=== PATIENT | female | born 1940 | race Caucasian/White ===

== ENCOUNTER 2018-06-26 19:53 | Emergency (ER) | payer MEDICARE, BC ==
[2018-06-26 20:35] VITALS: BP 166/67
--- NOTE | 2018-06-26 20:44 | CR ---
[id number] RAD/RAD Shoulder Left 2V Min EXAM: LEFT SHOULDER 3 VIEWS INDICATION: Anterior shoulder pain and fall. COMPARISON: None. DISCUSSION: Acute nondisplaced greater tuberosity fracture is suggested. No dislocation. Mild to moderate acromioclavicular osteoarthritis. IMPRESSION: 1. Acute nondisplaced greater tuberosity fracture. Luis Crocker MD 06/26/18 2040 Thank you for allowing us to participate in the care of your patient.
--- NOTE | 2018-06-26 22:22 | EDM.PDOC ---
ED HPI GENERAL MEDICAL PROBLEM - General Chief Complaint: Upper Extremity Injury/Pain Stated Complaint: FAll, left shoulder pain Time Seen by Provider: 06/26/18 19:55 Source of Information: Reports: Patient History Limitations: Reports: No Limitations - History of Present Illness INITIAL COMMENTS - FREE TEXT/NARRATIVE: Pt. presents to ER with complaints of L shoulder pain. Pt. states that she had a mechanical fall and thinks she struck her shoulder on the edge of a car. She did not strike her head. Denies any neck pain. She states that her pain is isolated to the L shoulder. Denies numbness or tingling in the extremity. She states that the pain has improved since the initial injury. States that the pain is located only on the anteriolateral proximal humerus and denies any posterior shoulder pain, and no significant increase in pain with movement of the L shoulder. Onset: Today Onset Date: 06/26/18 Location: Reports: Upper Extremity, Left Left shoulder Pain Score (Numeric/FACES): 7 - Related Data Allergies Allergy/AdvReac Type Severity Reaction Status Date / Time ciprofloxacin HCl Allergy Dizziness Verified 06/26/18 20:35 [From Cipro] Sulfa (Sulfonamide Allergy Rash Verified 06/26/18 20:35 Antibiotics) Home Meds: Home Meds Losartan [Cozaar] 25 mg PO DAILY 06/28/14 [History] Multivitamin [Multi-Vitamin Daily] 1 each PO DAILY 06/28/14 [History] Nitrofurantoin Childress/Macrocryst [Macrobid] 100 mg PO BID 06/28/14 [History] Potassium Chloride 10 meq PO BID 06/28/14 [History] Propranolol HCl [Propranolol] 60 mg PO DAILY 06/28/14 [History] Triamterene/Hydrochlorothiazid [Triamterene-HCTZ 37.5-25 MG] 1 each PO DAILY [History] Past Medical History Cardiovascular History: Reports: Hypertension Review of Systems - Review of Systems Review Of Systems: ROS reveals no pertinent complaints other than HPI. ED EXAM, GENERAL - Physical Exam Exam: See Below Exam Limited By: No Limitations General Appearance: Alert, WD/WN, No Apparent Distress Head: Atraumatic, Normocephalic Neck: Normal Inspection, Supple, Non-Tender, Full Range of Motion Extremities: Normal Inspection, Normal Range of Motion, Other (anteriolateral L shoulder pain on palpation. No crepitus noted. No ecchymosis. No obvious deformity.) Course - Vital Signs Last Recorded V/S: Last Vital Signs Temp 36.7 C 06/26/18 19:55 Pulse 68 06/26/18 19:55 Resp 16 06/26/18 19:55 BP 166/67 H 06/26/18 19:55 Pulse Ox 95 06/26/18 19:55 - Radiology Interpretation Free Text/Narrative:: Radiologist questioned possible greater tuberosity fracture of the shoulder. Departure - Departure Time of Disposition: 10:24 Disposition: Home, Self-Care 01 Clinical Impression: Humerus fracture - Discharge Information Referrals: Sanchez Ahuja MD [Primary Care Provider] - Forms: ED Department Discharge Additional Instructions: Follow-up in clinic in 7-10 days Ice shoulder for 15 min every 1-2 hours Use sling for comfort Tylenol as needed for pain. - Assessment/Plan Plan: I spoke with the orthopedist manager production at [facility]. He states that he is not sure if there is a definite fracture. He advised outpatient followup if the patient is continuing to have pain. She was placed in a sling. Tylenol as needed for pain. She is not interested in any other medication at this time. Follow-up in clinic in 7-10 days. Ice shoulder for 10-15 min every 1-2 hours.
== END 2018-06-26 22:00 | disposition home or self-care (01) ==
LOC: VM.ED 19:53
DX: S42.302A Unspecified fracture of shaft of humerus, left arm, initial encounter for closed fracture (principal); I10 Essential (primary) hypertension; Z88.1 Allergy status to other antibiotic agents; Z88.2 Allergy status to sulfonamides; Z79.899 Other long term (current) drug therapy; W22.8XXA Striking against or struck by other objects, initial encounter
CPT/HCPCS: 73030-LT; 99283-25; 99283-GF

== ENCOUNTER 2023-01-09 13:01 | Emergency (ER) | payer MEDICARE, BC ==
[~2023-01-09 13:01] MED LIST: Ondansetron 4 MG/2 ML SDV IVPUSH ONE; Ondansetron 4 MG/2 ML SDV ONE
[2023-01-09 17:24] VITALS: BP 150/65; PULSE 66
== END 2023-01-09 14:53 | disposition home or self-care (01) ==
LOC: SUPCPDRO 13:01 → VM.ED 13:01
DX: R04.0 Epistaxis (principal); M54.50 Low back pain, unspecified; I10 Essential (primary) hypertension; I48.91 Unspecified atrial fibrillation; Z79.899 Other long term (current) drug therapy; Z88.1 Allergy status to other antibiotic agents; Z88.2 Allergy status to sulfonamides; Z79.01 Long term (current) use of anticoagulants
CPT/HCPCS: 30901; 30903; 96374; 99283; 99284-25; J2405

== ENCOUNTER 2023-04-06 18:15 | Emergency (ER) | payer MEDICARE, BC ==
[2023-04-06 19:04] VITALS: BP 147/97; PULSE 89
== END 2023-04-06 19:20 | disposition home or self-care (01) ==
LOC: VM.ED 18:15
DX: F02.80 Dementia in other diseases classified elsewhere, unspecified severity, without behavioral disturbance, psychotic disturbance, mood disturbance, and anxiety (principal); G30.9 Alzheimer's disease, unspecified; G89.29 Other chronic pain; M54.50 Low back pain, unspecified; I10 Essential (primary) hypertension; Z88.1 Allergy status to other antibiotic agents; Z88.2 Allergy status to sulfonamides; Z79.899 Other long term (current) drug therapy; W01.0XXA Fall on same level from slipping, tripping and stumbling without subsequent striking against object, initial encounter
CPT/HCPCS: 99284